=== PATIENT | female | born 1990 | race Caucasian/White ===

== ENCOUNTER 2017-01-04 16:25 | Emergency (ER) | payer OTHER ==
[2017-01-04 16:29] VITALS: BP 120/64; PULSE 80; TEMP 98.1; BMI 29.0
[2017-01-04 17:09] LABS: BASOPHIL 0.5 % (0-2.0); EOSINOPHIL 1.8 % (0-4.5); MCH 25.8 pg (25.7-33.7); MCHC 33.1 g/dl (32.0-36.0); MEAN CELL VOLUME 77.9 fl (80-96); MEAN PLT VOLUME 7.9 fl (7.5-11.1); NEUTROPHILS 70.2 % (42.8-82.8); PLATELET COUNT 260 K/MM3 (134-434); RDW 16.4 % (11.6-15.6); WHITE BLOOD COUNT 6.7 K/mm3 (4.0-10.0)
--- NOTE | 2017-01-04 17:25 | PDOC ---
History of Present Illness - General History Source: Patient - History of Present Illness Timing/Duration: reports: intermittent <Marline Long - Last Filed: 01/04/17 18:57> <Elvis Cotton - Last Filed: 01/04/17 20:53> - General Chief Complaint: Vaginal Bleeding Stated Complaint: PCP SENT/VAGINAL BLEEDING Time Seen by Provider: 01/04/17 16:43 Past History - Past Medical History Other medical history: NONE - Psycho/Social/Smoking Cessation Hx Anxiety: No Suicidal Ideation: No Smoking History: Never smoked Hx Alcohol Use: No Drug/Substance Use Hx: No Substance Use Type: None <Marline Long - Last Filed: 01/04/17 18:57> <Elvis Cotton - Last Filed: 01/04/17 20:53> - Past Medical History Allergies/Adverse Reactions: Allergies Allergy/AdvReac Type Severity Reaction Status Date / Time No Known Allergies Allergy Verified 01/04/17 16:29 Home Medications: Ambulatory Orders NK [No Known Home Medication] 01/04/17 Review of Systems - Review of Systems Constitutional: No: Chills, Fever, Unintentional Wgt. Loss ABD/GI: No: Abdominal Distended, Nausea, Vomiting : No: Dysuria Musculoskeletal: No: Back Pain <Marline Long Last Filed: 01/04/17 18:57> *Physical Exam - Vital Signs Last Vital Signs Temp Pulse Resp BP Pulse Ox 98.1 F 80 20 120/64 100 01/04/17 16:26 01/04/17 16:26 01/04/17 16:26 01/04/17 16:26 01/04/17 16:26 - Physical Exam General Appearance: Yes: Appropriately Dressed. No: Apparent Distress HEENT: positive: Normal Voice Neck: positive: Supple Respiratory/Chest: negative: Respiratory Distress Female Pelvic Exam: positive: lesions (cervical polyp/mass that bleeds easily w / palpation, os closed), vaginal bleeding. negative: normal external exam, CMT Gastrointestinal/Abdominal: positive: Soft. negative: Tender Extremity: positive: Normal Inspection Integumentary: positive: Dry, Warm Neurologic: positive: Fully Oriented, Alert, Normal Mood/Affect <Marline Long Last Filed: 01/04/17 18:57> - Vital Signs Last Vital Signs Temp Pulse Resp BP Pulse Ox 98.1 F 80 20 120/64 100 01/04/17 16:26 01/04/17 16:26 01/04/17 16:26 01/04/17 16:26 01/04/17 16:26 <Elvis Cotton - Last Filed: 01/04/17 20:53> ED Treatment Course - LABORATORY CBC & Chemistry Diagram: 01/04/17 17:00 - ADDITIONAL ORDERS Additional order review: 01/04/17 17:00 RBC 4.47 MCV 77.9 L MCHC 33.1 RDW 16.4 H MPV 7.9 Neutrophils % 70.2 Lymphocytes % 18.9 Monocytes % 8.6 Eosinophils % 1.8 Basophils % 0.5 - RADIOLOGY Radiology Studies Ordered: Category Date Time Status <14WKS US [US] Stat Ultrasound 01/04/17 17:05 Ordered <Marline Long - Last Filed: 01/04/17 18:57> - LABORATORY CBC & Chemistry Diagram: 01/04/17 17:00 - ADDITIONAL ORDERS Additional order review: Laboratory Results 01/04/17 01/04/17 01/04/17 17:20 17:00 17:00 Beta HCG, Quant 62960.1 Urine Color Colorless Urine Appearance Clear Urine pH 8.0 Ur Specific [place] 1.010 Urine Protein Negative Urine Glucose (UA) Negative Urine Ketones Negative Urine Blood 2+ H Urine Nitrite Negative Urine Bilirubin Negative Urine Urobilinogen Negative Ur Leukocyte Esterase 2+ H Urine RBC <1 Urine WBC 2 Ur Epithelial Cells Rare Urine HCG, Qual Positive Blood Type O POSITIVE Antibody Screen Negative 01/04/17 17:00 RBC 4.47 MCV 77.9 L MCHC 33.1 RDW 16.4 H MPV 7.9 Neutrophils % 70.2 Lymphocytes % 18.9 Monocytes % 8.6 Eosinophils % 1.8 Basophils % 0.5 <Elvis Cotton - Last Filed: 01/04/17 20:53> Medical Decision Making - Medical Decision Making 01/04/17 17:20 27 yo F, (1 stillborn and 1 elec ab), currently ~3 months , f/u with OB and states [facility] US scheduled for next month, presents to ED today to evaluate fetus given intermittent vag bleed throughout her as per pt. Denies worsening of sxs and no abd pain, dysuria, n/v/f/c. Pt states OB aware of vag bleed but for unclear reasons, no US has been done. Pt states she was scheduled for biopsy today after being told that her pap smear last week came back abnormal. States skip load driver was unable to perform bx 2/2 vag bleed and so sent pt to ED for US. See exam 1st trimester w/ bleeding cervical lesion No US as of yet Had abnl pap smear last week Unable to have biopsy today 2/2 bleed Stable in ED w/ >1 cm cervical polyp/mass that bleeds easily w/ palp -labs -US -anticipate dc w/ f/u w/ skip load driver for continued w/u for cervical lesion and OB f/u 01/04/17 18:25 <Marline Long - Last Filed: 01/04/17 18:57> *DC/Admit/Observation/Transfer <Marline Long - Last Filed: 01/04/17 18:57> - Discharge Dispostion Admit: No <Elvis Cotton D - Last Filed: 01/04/17 20:53> Diagnosis at time of Disposition: Cervical lesion, Vaginal bleeding Qualifiers: Weeks of gestation: 10 weeks Qualified Code(s): Z3A.10 - 10 weeks gestation of - Discharge Dispostion Disposition: HOME Condition at time of disposition: Stable - Referrals Referrals: Denisse Raya MD [Primary Care Provider] - - Patient Instructions Printed Discharge Instructions: DI for Vaginal Bleeding Additional Instructions: You have a cervical lesion (polyp vs mass) that needs further evaluation and work up by your DRIVER MANAGER. Please follow up Please follow up with your OB Print Language: HEBREW
[2017-01-04 18:08] LABS: URINE APPEARANCE CLEAR; URINE BILIRUBIN NEGATIVE (NEGATIVE); URINE COLOR COLORLESS; URINE GLUCOSE (UA) NEGATIVE (NEGATIVE); URINE KETONE NEGATIVE (NEGATIVE); URINE NITRITE NEGATIVE (NEGATIVE); URINE PROTEIN NEGATIVE (NEGATIVE); URINE UROBILINOGEN NEGATIVE E.U./dl (0.2-1.0)
[2017-01-04 18:17] LABS: URINE BLOOD 2+ (NEGATIVE); URINE LEUK ESTERASE 2+ (NEGATIVE)
[2017-01-04 18:30] LABS: URINE RBC <1 /hpf (0-3); URINE WBC 2 /hpf (3-5)
[2017-01-04] MEDS ORDERED: RHO(D) IMMUNE GLOBULIN 1,500 UNIT DISP.SYRIN IM ONE (20:48)
== END 2017-01-04 21:40 | disposition home or self-care (01) ==
LOC: JER 16:25
DX: O34.41 Maternal care for other abnormalities of cervix, first trimester (principal); N84.1 Polyp of cervix uteri; Z3A.10 10 weeks gestation of pregnancy
CPT/HCPCS: 36415; 76801-TC; 81003; 81015; 84702; 84703; 85025; 87086; 99282-25

== ENCOUNTER 2017-01-14 22:59 | Emergency (ER) | payer OTHER ==
[2017-01-14 23:38] VITALS: BP 118/61; PULSE 77; TEMP 98.4; BMI 28.9
--- NOTE | 2017-01-14 23:39 | PDOC ---
History of Present Illness - General History Source: Patient Exam Limitations: No Limitations - History of Present Illness Initial Comments: 01/15/17 00:21 The patient is a 27 year old female A2 (1 stillborn) who is approximately 11 weeks , with no significant past medical history, who presents today complaining of vaginal bleeding and was concerned about the baby. She notes that she has been spotting throughout the , however, she passed a clot today and started bleeding more heavily. She had an ultrasound performed in the ED on 01/04/17, which reported a live intrauterine of 10 weeks 4 days. She denies fever, pain, nausea, vomiting. She denies abdominal pain. Allergies: none reported OBGYN: Dr. Shawanda Raya <Demetra Shahid - Last Filed: 01/15/17 00:20> <Malissa Dwyer - Last Filed: 01/15/17 01:08> - General Chief Complaint: Vaginal Bleeding Stated Complaint: 12 WKS PRG/VAGINAL BLEEDING Time Seen by Provider: 01/14/17 23:38 Past History <Demetra Shahid - Last Filed: 01/15/17 00:20> - Reproductive History (#): 4 Para: 0 - Psycho/Social/Smoking Cessation Hx Anxiety: No Suicidal Ideation: No Smoking History: Never smoked Have you smoked in the past 12 months: No Information on smoking cessation initiated: No Hx Alcohol Use: No Drug/Substance Use Hx: No Substance Use Type: None <Malissa Dwyer - Last Filed: 01/15/17 01:08> - Past Medical History Allergies/Adverse Reactions: Allergies Allergy/AdvReac Type Severity Reaction Status Date / Time No Known Allergies Allergy Verified 01/04/17 16:29 Home Medications: Ambulatory Orders NK [No Known Home Medication] 01/04/17 Review of Systems - Review of Systems Able to Perform ROS?: Yes Comments:: 01/15/17 00:21 GENERAL/CONSTITUTIONAL: No fever or chills. No weakness. HEAD, EYES, EARS, NOSE AND THROAT: No change in vision. No ear pain or discharge. No sore throat. CARDIOVASCULAR: No chest pain or shortness of breath. RESPIRATORY: No cough, wheezing, or hemoptysis. GASTROINTESTINAL: No nausea, vomiting, diarrhea or constipation. GENITOURINARY: No dysuria, frequency, or change in urination. MUSCULOSKELETAL: No joint or muscle swelling or pain. No neck or back pain. PELVIC: +vaginal bleeding SKIN: No rash NEUROLOGIC: No headache, vertigo, loss of consciousness, or change in strength/ sensation. ENDOCRINE: No increased thirst. No abnormal weight change. HEMATOLOGIC/LYMPHATIC: No anemia, easy bleeding, or history of blood clots. ALLERGIC/IMMUNOLOGIC: No hives or skin allergy. <Demetra Shahid - Last Filed: 01/15/17 00:20> *Physical Exam - Vital Signs Last Vital Signs Temp Pulse Resp BP Pulse Ox 98.4 F 77 18 118/61 97 01/14/17 23:37 01/14/17 23:37 01/14/17 23:37 01/14/17 23:37 01/14/17 23:37 - Physical Exam Comments: 01/15/17 00:22 GENERAL: Awake, alert, and fully oriented, in no acute distress HEAD: No signs of trauma EYES: PERRLA, EOMI, sclera anicteric, conjunctiva clear ENT: Auricles normal inspection, hearing grossly normal, nares patent, oropharynx clear without exudates. Moist mucosa NECK: Normal ROM, supple, no lymphadenopathy, JVD, or masses LUNGS: Breath sounds equal, clear to auscultation bilaterally. No wheezes, and no crackles HEART: Regular rate and rhythm, normal S1 and S2, no murmurs, rubs or gallops ABDOMEN: Soft, nontender, normoactive bowel sounds. No guarding, no rebound. No masses PELVIC: Moderate bleeding without clots. No active bleeding from os. Os was closed. No CMT or adnexal tenderness EXTREMITIES: Normal range of motion, no edema. No clubbing or cyanosis. No cords, erythema, or tenderness NEUROLOGICAL: Cranial nerves II through XII grossly intact. Normal speech, normal gait SKIN: Warm, Dry, normal turgor, no rashes or lesions noted. <Demetra Shahid - Last Filed: 01/15/17 00:20> - Vital Signs Last Vital Signs Temp Pulse Resp BP Pulse Ox 98.4 F 77 18 118/61 97 01/14/17 23:37 01/14/17 23:37 01/14/17 23:37 01/14/17 23:37 01/14/17 23:37 <Malissa Dwyer - Last Filed: 01/15/17 01:08> ED Treatment Course - LABORATORY CBC & Chemistry Diagram: 01/14/17 23:45 01/15/17 00:10 - ADDITIONAL ORDERS Additional order review: 01/14/17 23:45 RBC 4.25 MCV 78.3 L MCHC 33.1 RDW 16.6 H MPV 8.5 Neutrophils % 71.2 Lymphocytes % 19.1 Monocytes % 7.6 Eosinophils % 1.7 Basophils % 0.4 <Demetra Shahid - Last Filed: 01/15/17 00:20> - LABORATORY CBC & Chemistry Diagram: 01/14/17 23:45 01/15/17 00:10 <Malissa Dwyer - Last Filed: 01/15/17 01:08> Medical Decision Making - Medical Decision Making 01/15/17 00:52 pt presents to the ED complaining of worsening vaginal bleeding. Patient has been bleeding throughout her , but had previously been spotting only and today had heavy bleeding and passed a large clot. Denies abdominal pain. Recently seen in the ED for vaginal bleeding, had documented IUP on that visit. Closed os with small amount of bleeding on pelvic exam. No UTI. No concern for ectopic or incomplete . Patient understands that she may loose this and that she must follow up with her OB. <Malissa Dwyer - Last Filed: 01/15/17 01:08> *DC/Admit/Observation/Transfer - Attestations Scribe Attestion: 01/15/17 00:23 Documentation prepared by SHAVONNE Orellana, acting as medical record transcriber for Malissa Dwyer MD. <Demetra Shahid - Last Filed: 01/15/17 00:20> - Discharge Dispostion Admit: No <Malissa Dwyer - Last Filed: 01/15/17 01:08> Diagnosis at time of Disposition: Vaginal bleeding - Discharge Dispostion Disposition: HOME Condition at time of disposition: Good
[2017-01-15 00:08] LABS: BASOPHIL 0.4 % (0-2.0); EOSINOPHIL 1.7 % (0-4.5); MCH 25.9 pg (25.7-33.7); MCHC 33.1 g/dl (32.0-36.0); MEAN CELL VOLUME 78.3 fl (80-96); MEAN PLT VOLUME 8.5 fl (7.5-11.1); NEUTROPHILS 71.2 % (42.8-82.8); PLATELET COUNT 230 K/MM3 (134-434); RDW 16.6 % (11.6-15.6)
[2017-01-15 00:20] LABS: URINE APPEARANCE SLCLOUDY; URINE BILIRUBIN NEGATIVE (NEGATIVE); URINE GLUCOSE (UA) NEGATIVE (NEGATIVE); URINE KETONE TRACE (NEGATIVE); URINE NITRITE NEGATIVE (NEGATIVE); URINE UROBILINOGEN NEGATIVE E.U./dl (0.2-1.0)
[2017-01-15 00:24] LABS: URINE BLOOD 3+ (NEGATIVE); URINE COLOR DK YELLOW; URINE LEUK ESTERASE TRACE (NEGATIVE); URINE PROTEIN 2+ (NEGATIVE)
[2017-01-15 00:28] LABS: URINE MUCUS RARE; URINE RBC 6299 /hpf (0-3); URINE WBC 10 /hpf (3-5)
[2017-01-15 00:32] LABS: ALBUMIN 3.1 g/dl (3.4-5.0); ALK PHOS 63 U/L (45-117); ANION GAP 13 (8-16); BILIRUBIN,TOTAL 0.2 mg/dL (0.2-1.0); CALCIUM 8.7 mg/dL (8.5-10.1); CO2 23 mmol/L (21-32); CREATININE 0.6 mg/dL (0.55-1.02); GLUCOSE,RANDOM 104 mg/dL (74-106); SGOT/AST 17 U/L (15-37); SGPT/ALT 18 U/L (12-78); TOT PROT 6.7 g/dl (6.4-8.2)
== END 2017-01-15 01:32 | disposition home or self-care (01) ==
LOC: JER 22:59
DX: O46.91 Antepartum hemorrhage, unspecified, first trimester (principal); Z3A.12 12 weeks gestation of pregnancy
CPT/HCPCS: 36415; 80053; 81003; 81015; 84702; 85025; 86850; 86900; 86901; 99283-25

== ENCOUNTER 2017-04-30 22:03 | Inpatient (IN) | payer OTHER ==
[2017-04-30] MEDS ORDERED: GENTAMICIN 80 MG PREMIXED IVPB 100 ML IVPB ONE (23:30)
[2017-04-30] MEDS ORDERED: AMPICILLIN - 2 GM in SODIUM CHLORIDE 100 ML IVPB ONE (23:30)
[2017-04-30 23:35] LABS: BASOPHIL 0.3 % (0-2.0); EOSINOPHIL 0.2 % (0-4.5); MCH 26.2 pg (25.7-33.7); MCHC 33.1 g/dl (32.0-36.0); MEAN PLT VOLUME 8.3 fl (7.5-11.1); NEUTROPHILS 89.7 % (42.8-82.8); PLATELET COUNT 247 K/MM3 (134-434); RDW 14.6 % (11.6-15.6); WHITE BLOOD COUNT 13.9 K/mm3 (4.0-10.0)
[2017-04-30] MEDS ORDERED: CITRIC ACID/SODIUM CITRATE 30 ML UNIT-DOSE CUP PO ONE (23:35)
[2017-04-30] MEDS: ELECTROLYTE-148 SOLN 1,000 ML IV SCH (23:45)
--- NOTE | 2017-04-30 23:45 | HP ---
Past Medical History - Primary Care Physician PCP:: Felton Jeter - Admission Chief Complaint: 28 weeks , prom, labor . chorioamnionitis History of Present Illness: 27 yo f 013 0 edc by sono 07/30/17 28 weeks c/o rom since 6 pm 04/29/17 has pain since 8 pm tonight , cx 1 cm 80 vx -3 , gross rom , vaginal pooling with fouel odor, nitrazine positive, fhr cat 2 with variabel decel , sono no fluid, advised c/s, risks discussed one unexplained demise at 26 weeks History Source: Patient Limitations to Obtaining History: No Limitations - Past Medical History ...: 4 ...Para: 0 ...Term: 0 ...: 1 ...Spon : 2 ...Induced : 0 ...Multiple Gestation: 0 ... Weeks Gestation by Dates: ...EDC by Dates: 07/21/17 ...EDC by Sono: 07/30/17 - Past Surgical History Hx Myomectomy: No Hx Transabdominal Cerclage: No - Smoking History Smoking history: Never smoked Have you smoked in the past 12 months: No - Alcohol/Substance Use Hx Alcohol Use: No - Social History History of Recent Travel: No Home Medications - Allergies Allergies/Adverse Reactions: Allergies Allergy/AdvReac Type Severity Reaction Status Date / Time No Known Allergies Allergy Verified 01/04/17 16:29 - Home Medications Home Medications: Ambulatory Orders NK [No Known Home Medication] 01/04/17 Review of Systems - Review of Systems Constitutional: reports: Fever Eyes: reports: No Symptoms HENT: reports: No Symptoms Neck: reports: No Symptoms Cardiovascular: reports: No Symptoms Respiratory: reports: No Symptoms Gastrointestinal: reports: No Symptoms Genitourinary: reports: No Symptoms Breasts: reports: No Symptoms Reported Musculoskeletal: reports: No Symptoms Neurological: reports: No Symptoms Endocrine: reports: No Symptoms Hematology/Lymphatic: reports: No Symptoms Psychiatric: reports: No Symptoms Physical Exam - Maternity Constitutional: Yes: Well Nourished, No Distress, Anxious Eyes: Yes: WNL, Conjunctiva Clear, EOM Intact HENT: Yes: WNL, Atraumatic, Normocephalic Neck: Yes: WNL, Supple, Trachea Midline Cardiovascular: Yes: WNL, Regular Rate and Rhythm Breast(s): Yes: WNL - Abdominal Exam/OB Fundal Height: 28 Number of Fetuses: Single Presentation: Vertex Contractions: Yes Regularity: Regular (q 1 min) Intensity: Mod/Strong Monitor Mode: External Heart Rate Location: [facility] Category: II Accelerations: Non-Uniform Decelerations: Variable - Vaginal Exam/OB Vaginal Bleediing: Bloody Show Speculum Exam: Yes Dilatation (cm): 1 cm Effacement (%): 80 Amniotic Membrane Status: Ruptured Nitrazine Test: Positive Amniotic Fluid: Yes: Clear (fouel smelling amniotic fluid) Station: -3 - Physical Exam Musculoskeletal: Yes: WNL Edema: LLE: Trace, RLE: Trace Deep Tendon Reflex Grade: Normal +2 ...Motor Strength: WNL Psychiatric: Yes: WNL - Labs Lab Results: CBC, BMP 04/30/17 23:30 Hemorrhage Risk Assessment - Risk Factors Medium Risk Factors: Yes: None High Risk Factors: Yes: None Risk Score: 1 Risk Level: Medium Risk Problem List - Problems (1) with 28 completed weeks gestation Code(s): Z3A.28 - 28 WEEKS GESTATION OF (2) membrane rupture Code(s): MVN9577 - (3) Chorioamnionitis in third trimester Code(s): O41.1230 - CHORIOAMNIONITIS, THIRD TRIMESTER, NOT APPLICABLE OR UNSP Qualifiers: Fetus number: single or unspecified fetus Qualified Code(s): O41.1230 - Chorioamnionitis, third trimester, not applicable or unspecified (4) Labor established Code(s): GHC4941 - Assessment/Plan plan in view of ROM, foul smelling A.F, anhydramnions , chorio , advised c/s risks discussed, blood culture, iv antibiotics
[2017-04-30 23:54] LABS: ANION GAP 11 (8-16); CALCIUM 7.9 mg/dL (8.5-10.1); CO2 22 mmol/L (21-32); CREATININE 0.6 mg/dL (0.55-1.02); GLUCOSE,RANDOM 241 mg/dL (74-106)
[2017-04-30 23:58] LABS: INR 1.07 (0.82-1.09); PROTHROMBIN TIME (PATIENT) 11.8 SEC (9.98-11.88)
[2017-05-01] LABS: ACTIVATED PTT 28.5 SECONDS (26.9-34.4)
[2017-05-01 00:07] LABS: HIV 1 & 2 AB NEGATIVE; HIV 1 AGp24 NEGATIVE
[2017-05-01] MEDS ORDERED: WITCH HAZEL 50% (TUCKS) 40 PAD/JAR PAD TP PRN (00:29)
[2017-05-01] MEDS ORDERED: METHYLERGONOVINE MALEATE 0.2 MG/1 ML AMP IM PRN (00:29)
[2017-05-01] MEDS ORDERED: IBUPROFEN 800 MG/8 ML IJ IVPB PRN (00:29)
[2017-05-01] MEDS ORDERED: BENZOCAINE 20% 57 GM BOTTLE TP PRN (00:29)
[2017-05-01] MEDS ORDERED: BENZOCAINE 28 GM HEMORRHOIDAL OINTMENT PR PRN (00:29)
[2017-05-01] MEDS ORDERED: oxyCODONE HCL 5 MG TABLET PO PRN (00:29)
[2017-05-01] MEDS ORDERED: diphenhydrAMINE HCL 25 MG CAPSULE (FP) PO PRN (00:29)
[2017-05-01] MEDS: DEXTROSE 5%-LACTATED RINGERS 1,000 ML IV SCH (00:30)
[2017-05-01] MEDS ORDERED: OXYTOCIN 20 UNITS in 0.9% NS 1,000 ML IV SCH (00:30)
[2017-05-01 01:43] LABS: VENOUS BLOOD GAS HCO3 21.6 meq/L (19-25); VENOUS PH 7.38 (7.32-7.42)
[2017-05-01 01:45] LABS: ARTERIAL BLOOD GAS BASE EXCESS -3.7 meq/l (-2-2); ARTERIAL BLOOD GAS HCO3 23.3 meq/L (22-26); ARTERIAL BLOOD GAS pH 7.27 (7.35-7.45)
[2017-05-01 01:47] LABS: ARTERIAL BLOOD GAS PO2 24.3 mmHg (80-100)
[2017-05-01] MEDS ORDERED: ONDANSETRON 4 MG/2 ML VIAL IVPB PRN (01:49)
[2017-05-01 03:33] VITALS: BMI 28.7
[2017-05-01] MEDS: AMPICILLIN - 1 GM in SODIUM CHLORIDE 100 ML IVPB SCH ×4 (04:39→21:38)
[2017-05-01] MEDS: GENTAMICIN 80 MG PREMIXED IVPB 100 ML IVPB SCH ×4 (06:45→17:48)
[2017-05-01] MEDS ORDERED: TUBERCULIN PPD 5 TU/0.1ML SYRINGE (IN PATIENT USE ONLY) ID ONE (06:45)
[2017-05-01] MEDS: ENOXAPARIN NA (PORCINE) 40 MG/0.4 ML DISP.SYRIN SQ SCH (10:09)
[2017-05-01] MEDS: SIMETHICONE 80 MG TAB.CHEW (FP) PO PRN ×2 (15:07→21:39)
[2017-05-01] MEDS: IBUPROFEN 600 MG TABLET (FP) PO PRN ×2 (15:07→21:43)
[2017-05-01] MEDS: ACETAMINOPHEN 325 MG TABLET (FP) PO PRN ×2 (15:08→21:39)
[2017-05-01] MEDS: ELECTROLYTE-148 SOLN 1,000 ML IV SCH (23:46)
[2017-05-02] MEDS ORDERED: BISACODYL 10 MG SUPP.RECT RC PRN (00:29)
[2017-05-02] MEDS: AMPICILLIN - 1 GM in SODIUM CHLORIDE 100 ML IVPB SCH ×2 (02:23→10:41)
[2017-05-02] MEDS: GENTAMICIN 80 MG PREMIXED IVPB 100 ML IVPB SCH ×2 (02:23→09:12)
[2017-05-02] MEDS: DEXTROSE 5%-LACTATED RINGERS 1,000 ML IV SCH ×2 (02:24→02:27)
[2017-05-02] MEDS: SIMETHICONE 80 MG TAB.CHEW (FP) PO PRN ×3 (06:12→22:24)
[2017-05-02] MEDS: ACETAMINOPHEN 325 MG TABLET (FP) PO PRN ×2 (06:12→22:24)
[2017-05-02] MEDS: IBUPROFEN 600 MG TABLET (FP) PO PRN ×3 (06:13→22:30)
[2017-05-02 07:29] LABS: BASOPHIL 0.2 % (0-2.0); EOSINOPHIL 0.4 % (0-4.5); MCH 25.9 pg (25.7-33.7); MCHC 32.3 g/dl (32.0-36.0); MEAN CELL VOLUME 80.3 fl (80-96); MEAN PLT VOLUME 8.2 fl (7.5-11.1); NEUTROPHILS 86.2 % (42.8-82.8); PLATELET COUNT 193 K/MM3 (134-434); RDW 14.7 % (11.6-15.6); WHITE BLOOD COUNT 12.5 K/mm3 (4.0-10.0)
[2017-05-02] MEDS ORDERED: DIPHTH,PERTUSS(ACELL),TET 0.5 ML DISP.SYRIN IM ONE (10:00)
--- NOTE | 2017-05-02 11:21 | PN ---
Progress Note (short form) - Note Progress Note: pod1 s/p c/s for chorio, has mild cramps, no excess vaginal bleeding. afebrile CBC, BMP 05/02/17 06:50 04/30/17 23:30 CBC, BMP 05/02/17 06:50 04/30/17 23:30 Last Vital Signs Temp Pulse Resp BP Pulse Ox 97.9 F 69 18 91/49 99 05/01/17 22:00 05/01/17 22:00 05/01/17 23:00 05/01/17 22:00 05/01/17 02:00 abdomen soft, no distension, no CVA BS present incision dry, clean no excess vaginal bleeding no calf tenderness impression anemia, secondary to intraop blood loss and infection plan blood transfusion discussed , rba explained, repeat cbc after transfusion Problem List - Problems (1) with 28 completed weeks gestation Code(s): Z3A.28 - 28 WEEKS GESTATION OF (2) membrane rupture Code(s): BIE2804 - (3) Chorioamnionitis in third trimester Code(s): O41.1230 - CHORIOAMNIONITIS, THIRD TRIMESTER, NOT APPLICABLE OR UNSP Qualifiers: Fetus number: single or unspecified fetus Qualified Code(s): O41.1230 - Chorioamnionitis, third trimester, not applicable or unspecified (4) Labor established Code(s): WPN0375 -
--- NOTE | 2017-05-02 12:11 | PN ---
Progress Note (short form) - Note Progress Note: Anesthesia/Pain Pt seen and examined S:alert and awake, comfortable getting blood transfusion O; Vital Signs Temperature 97.9 F 05/01/17 22:00 Pulse Rate 69 05/01/17 22:00 Respiratory Rate 18 05/01/17 23:00 Blood Pressure 91/49 05/01/17 22:00 O2 Sat by Pulse Oximetry (%) 99 05/01/17 02:00 CBC, BMP 05/02/17 06:50 04/30/17 23:30 A/P: Current Active Problems Chorioamnionitis in third trimester (Acute) membrane rupture (Acute) Labor established (Acute) with 28 completed weeks gestation (Acute) s/p c section Anemia due to blood loss Comfortable Continue current care Clyde Abrams MD
[2017-05-02] MEDS: ENOXAPARIN NA (PORCINE) 40 MG/0.4 ML DISP.SYRIN SQ SCH (14:13)
[2017-05-02] MEDS: oxyCODONE HCL 5 MG TABLET PO PRN (16:24)
[2017-05-02] MEDS: AMOX TR/POT CLAV 875MG/125MG TABLETS (FP) PO SCH (17:09)
[2017-05-02 18:54] LABS: BASOPHIL 0.3 % (0-2.0); EOSINOPHIL 0.3 % (0-4.5); MCH 27.4 pg (25.7-33.7); MCHC 33.4 g/dl (32.0-36.0); MEAN CELL VOLUME 82.1 fl (80-96); MEAN PLT VOLUME 8.6 fl (7.5-11.1); NEUTROPHILS 86.3 % (42.8-82.8); PLATELET COUNT 215 K/MM3 (134-434); WHITE BLOOD COUNT 13.3 K/mm3 (4.0-10.0)
--- NOTE | 2017-05-03 06:20 | PN ---
Post Progress Note - Subjective Subjective: no c/o dizziness pain scale 5/10 voiding without difficulty Post Day: 2 Type of Delivery: Primary C/S Vital Signs: Vital Signs Temperature 98.8 F 05/02/17 22:00 Pulse Rate 68 05/02/17 22:00 Respiratory Rate 18 05/02/17 22:00 Blood Pressure 103/55 05/02/17 22:00 O2 Sat by Pulse Oximetry (%) 99 05/01/17 02:00 Breast Exam: Yes: Soft, Other (attempting pumping breast milk ). No: Engorged Uterus: Yes: Fundus Firm, Fundus below umbilicus, Non-tender Incision: Yes: Dressing dry and intact (to be changed ). No: Oozing Abdomen/GI: Yes: Abdomen soft, Tender, Passing flatus, Tolerating PO (diet ). No: Abdominal Distention Lochia: Yes: Rubra Lochia, amount: Moderate Extremities: Yes: Calves non-tender Perineum: Yes: Intact Activity: Ambulating - Labs Labs: CBC WBC 13.3 K/mm3 (4.0-10.0) H 05/02/17 18:00 RBC 3.06 M/mm3 (3.60-5.2) L D 05/02/17 18:00 Hgb 8.4 GM/dL (10.7-15.3) L D 05/02/17 18:00 Hct 25.1 % (32.4-45.2) L D 05/02/17 18:00 MCV 82.1 fl (80-96) 05/02/17 18:00 MCH 27.4 pg (25.7-33.7) 05/02/17 18:00 MCHC 33.4 g/dl (32.0-36.0) 05/02/17 18:00 RDW 15.0 % (11.6-15.6) 05/02/17 18:00 Plt Count 215 K/MM3 (134-434) 05/02/17 18:00 MPV 8.6 fl (7.5-11.1) 05/02/17 18:00 Neutrophils % 86.3 % (42.8-82.8) H 05/02/17 18:00 Lymphocytes % 7.3 % (8-40) L 05/02/17 18:00 Monocytes % 5.8 % (3.8-10.2) 05/02/17 18:00 Eosinophils % 0.3 % (0-4.5) 05/02/17 18:00 Basophils % 0.3 % (0-2.0) 05/02/17 18:00 Other Findings, Remarks: urine out put 1650 ml RS CTA Assessment/Plan s/p primary c/section for Abruptio Placenta , severe Anemia , s/p2 pack cell transfusion , pt stable , Anemia Plan ct po care, encourage ambulation , deep breathing ct Po Augmentin start po Iron & Pnv
[2017-05-03] MEDS: FERROUS SO4 325 MG TABLET (FP) PO SCH ×2 (08:41→17:02)
[2017-05-03] MEDS: AMOX TR/POT CLAV 875MG/125MG TABLETS (FP) PO SCH ×2 (08:41→17:02)
[2017-05-03] MEDS: PRENATAL VITAMINS W/ FOLIC ACID TABLET (FP) PO SCH (10:15)
[2017-05-03] MEDS: ENOXAPARIN NA (PORCINE) 40 MG/0.4 ML DISP.SYRIN SQ SCH (10:16)
[2017-05-03] MEDS: IBUPROFEN 600 MG TABLET (FP) PO PRN ×2 (10:20→21:39)
[2017-05-03] MEDS: oxyCODONE HCL 5 MG TABLET PO PRN ×2 (10:21→21:38)
[2017-05-03] MEDS: SIMETHICONE 80 MG TAB.CHEW (FP) PO PRN ×2 (10:22→21:39)
--- NOTE | 2017-05-03 20:32 | OP ---
DATE OF OPERATION: 04/30/2017 PREOPERATIVE DIAGNOSIS: 28 weeks, prolonged ruptured membranes, chorioamnionitis, and labor, nonreassuring heart rate. POSTOPERATIVE DIAGNOSIS: 28 weeks, prolonged ruptured membranes, chorioamnionitis, and labor, nonreassuring heart rate. PROCEDURE: Primary low segment transverse incision. SURGEON: Wellington Jeter M.D. EMULSIFICATION OPERATOR: Sánchez Anglin ANESTHESIA: Spinal. ESTIMATED BLOOD LOSS: Approximately 700 mL. OPERATION: Patient was taken to operating room with adequate spinal anesthesia. Abdomen and perineum were prepped and draped. Pfannenstiel abdominal skin incision was made. Abdominal wall was cut layer by layer until the peritoneum was exposed and incised. Upon entering the abdominal cavity, the lower uterine segment was identified. There was a fibroid intramural at the mid uterine body, then a low transverse uterine incision was made. Incision was extended laterally. Amniotic sac was entered, very small amount of fluid, and with a foul smell. Culture was taken. Live baby was delivered without any difficulty. Placenta was delivered manually. Uterine cavity was cleared of all remaining tissue. Uterine incision was closed in 2 layers, the 1st layer with 0 Biosyn continuous suture, the 2nd layer with 0 Biosyn imbricating the 1st layer. Bladder flap was closed with 0 Biosyn continuous suture. Both tubes and ovaries were checked and were normal. No active bleeding was seen. All the lap, sponge, and instrument counts were correct. Peritoneum was closed with 0 Biosyn continuous suture. Muscles were brought together interrupted suture with 0 Biosyn. Fascia was closed with 0 Biosyn continuous sutures. Subcutaneous fat interrupted sutures 0 Biosyn, and the skin was closed with bernice. The patient tolerated the procedure well and left the OR in good condition. WELLINGTON JETER M.D. [id number]
[2017-05-03] MEDS: ACETAMINOPHEN 325 MG TABLET (FP) PO PRN (21:41)
[2017-05-03] MEDS ORDERED: SENNOSIDES/DOCUSATE COMBO (SENNA PLUS) TABLET (UD) PO PRN (22:00)
[2017-05-04] MEDS: FERROUS SO4 325 MG TABLET (FP) PO SCH (08:11)
[2017-05-04] MEDS: AMOX TR/POT CLAV 875MG/125MG TABLETS (FP) PO SCH (08:11)
[2017-05-04 08:47] LABS: BASOPHIL 0.3 % (0-2.0); EOSINOPHIL 2.3 % (0-4.5); MCH 27.6 pg (25.7-33.7); MCHC 33.7 g/dl (32.0-36.0); MEAN CELL VOLUME 81.8 fl (80-96); MEAN PLT VOLUME 7.8 fl (7.5-11.1); NEUTROPHILS 70.5 % (42.8-82.8); PLATELET COUNT 222 K/MM3 (134-434); RDW 15.2 % (11.6-15.6); WHITE BLOOD COUNT 6.5 K/mm3 (4.0-10.0)
[2017-05-04 09:08] VITALS: BP 113/65; PULSE 65; TEMP 98.7
[2017-05-04] MEDS: ENOXAPARIN NA (PORCINE) 40 MG/0.4 ML DISP.SYRIN SQ SCH (09:31)
[2017-05-04] MEDS: PRENATAL VITAMINS W/ FOLIC ACID TABLET (FP) PO SCH (09:31)
[2017-05-04] MEDS: FLU VACC QS2017-18 36MOS UP/PF 60 MCG/0.5 ML SYRINGE IM ONE ×2 (09:32→09:34)
[2017-05-04] MEDS: oxyCODONE HCL 5 MG TABLET PO PRN (12:19)
[2017-05-04] MEDS: SIMETHICONE 80 MG TAB.CHEW (FP) PO PRN (12:19)
[2017-05-04] MEDS: ACETAMINOPHEN 325 MG TABLET (FP) PO PRN (12:20)
--- NOTE | 2017-05-04 15:23 | DS ---
Physical Exam-FINANCIAL ADMINISTRATION OFFICER Vital Signs: Vital Signs Temperature 98.7 F 05/04/17 09:06 Pulse Rate 65 05/04/17 09:06 Respiratory Rate 20 05/04/17 09:06 Blood Pressure 113/65 05/04/17 09:06 O2 Sat by Pulse Oximetry (%) 99 05/01/17 02:00 Constitutional: Yes: Well Nourished Eyes: Yes: Conjunctiva Clear HENT: Yes: Atraumatic Neck: Yes: Supple Cardiovascular: Yes: Regular Rate and Rhythm Respiratory: Yes: Regular, CTA Bilaterally Gastrointestinal: Yes: Normal Bowel Sounds Pelvis: Yes: WNL Vaginal Exam: Yes: Normal Cervix: Yes: Normal Uterus: Yes: Normal Wound/Incision: Yes: Clean/Dry Neurological: Yes: Alert, Oriented ...Motor Strength: WNL Psychiatric: Yes: Alert, Oriented Labs: CBC, BMP 05/04/17 07:45 04/30/17 23:30 Delivery - Delivery Type of Anesthesia: Spinal EBL (cc): 800 Delivery, Single - Stages of Labor Date 1st Stage Initiatied: 04/30/17 Time 1st Stage Initiated: 20:00 Date of Delivery: 05/01/17 Time of Delivery: 00:44 Time Placenta Delivered: 00:46 - Condition of Infant Program Manager Slp/Marketing Team Lead Present: Yes Name: Simi Scott Infant Gender: Male Weight: 2 lb 3 oz Position: OP Total Hours ROM (Hrs/Mins): 30H44M - 1 Minute Total Score: 7 5 Minutes Total Score: 8 - Feeding Plan Initial Plan: Elected not to breastfeed exclusively throughout hospitalization Discharge Summary Reason For Visit: LABOR ADMIT Current Active Problems Chorioamnionitis in third trimester (Acute) membrane rupture (Acute) Labor established (Acute) with 28 completed weeks gestation (Acute) Procedures: Principal: Hospital Course: Post op care Patient received treatment for anemia Condition: Good - Instructions Diet, Activity, Other Instructions: return to clinic at [address] next . Referrals: Felton Jeter MD [Staff Physician] -
--- NOTE | 2017-05-04 15:50 | PATH ---
Surgical Pathology Report Patient Name: SCARLET NOONAN [facility]. Rec. #: [id number] /Age/Gender: 1990 (Age: 27) / F Account: [id number] [facility] OBS/COMPLIANCE DIRECTOR Taken: 05/01/2017 Received: 05/01/2017 Reported: 05/04/2017 Physicians: Felton Jeter M.D. Specimen(s) Received PLACENTA Clinical History PROM, IUP 28 weeks Chorioamnionitis Final Diagnosis PLACENTA, DELIVERY: SMALL (240 GRAM) IMMATURE PLACENTA WITH ACUTE CHORIOAMNIONITIS AND 3 VESSEL UMBILICAL CORD. Electronically Signed Steve Luis M.D. Gross Description The specimen is received fresh labeled placenta and is a 240 gram, 15.0 x 12.8 x 2.0 cm. placenta with attached membranes and umbilical cord. The attached membranes are bravo, thick, cloudy and insert marginally. The umbilical cord measures 10.5 cm. in length and averages 1.2 cm. in diameter. The cord inserts eccentrically, 3 cm. to the nearest margin. No true knots or strictures are identified. Cut surface of the umbilical cord reveals 3 vessels. The surface is bob-blue with minimal fibrin deposition and appropriate caliber vessels. The maternal surface is red-brown and intact. Sectioning reveals red-brown, spongy parenchyma. No lesions are identified. Gastroenterology Nurse sections are submitted in three cassettes as follows: 1- membrane rolls and umbilical cord; 2-3- full thickness sections of placenta. 05/03/[address] [facility]05/03/2017
== END 2017-05-04 15:00 | disposition home or self-care (01) | DRG 540 ==
LOC: JLDR 22:03 → J3W 05-01 05:00
PROVIDERS: ADMIT Obstetrics & Gynecology; ATTEND Obstetrics & Gynecology
PROC: 10D00Z1 Extraction of Products of Conception, Low, Open Approach (ICD-10-PCS; principal; 2017-05-02)
PROC: 30233H1 Transfusion of Nonautologous Whole Blood into Peripheral Vein, Percutaneous Approach (ICD-10-PCS; 2017-05-02)
DX: O42.113 Preterm premature rupture of membranes, onset of labor more than 24 hours following rupture, third trimester (principal); O41.1230 Chorioamnionitis, third trimester, not applicable or unspecified; O45.93 Premature separation of placenta, unspecified, third trimester; O76 Abnormality in fetal heart rate and rhythm complicating labor and delivery; D62 Acute posthemorrhagic anemia; O62.8 Other abnormalities of forces of labor; O99.02 Anemia complicating childbirth; Z3A.28 28 weeks gestation of pregnancy; Z37.0 Single live birth
CPT/HCPCS: 36415; 36430; 36600; 76815-TC; 80048; 82803; 85025; 85610; 85730; 86593; 86850; 86900; 86901; 86922; 87040; 87070; 87081; 87205; 87340; 87389; 88307-TC; 90686; 90715; G0008; P9038; P9058